=== PATIENT | male | born 1975 | race Caucasian/White ===

== ENCOUNTER 2016-06-13 15:49 | Observation (INO) | payer OTHER, MEDICARE ==
[~2016-06-13] VITALS: Ht 208.3 cm; Wt 118.9 kg
[~2016-06-13 15:49] MED LIST: AMBI5TAB PO; ASPI81TA82 PO; CLIN1CAP5 PO; FISH1360 PO; FLUO-1 PO; HYDR-3533 PO; INSU100V3 SQ/IV; LISI40TA PO; METF500 PO; MMW SWISH-SWAL; NIAC100T3 PO; PRED20 PO; VALI10TA PO; [UNRECOGNIZED DRUG - REMARK] PO
[2016-06-13 16:00] VITALS: BP 135/86; PULSE 114; RESP 20; TEMP 98; O2SAT 98
[2016-06-13] MEDS ORDERED: ONDANSETRON HCL 4 MG/2 ML VIAL IV PUSH ONE (16:00)
[2016-06-13] MEDS ORDERED: SODIUM CHLORIDE 0.9% FLUSH 5 ML FLUSH IVF PRN (16:00)
[2016-06-13] MEDS ORDERED: SODIUM CHLOR 0.9% 1000 ML INJ 1,000 ML IV ONE ×3 (16:00→19:30)
[2016-06-13] MEDS ORDERED: MORPHINE SULFATE 4 MG/ML INJ IV PUSH ONE ×2 (16:00→20:15)
[2016-06-13] MEDS ORDERED: METHY10 PO (16:08)
[2016-06-13] MEDS ORDERED: LISI40TA PO (16:08)
[2016-06-13] MEDS ORDERED: METF500T PO (16:08)
[2016-06-13] MEDS ORDERED: ASPI81CH CHEW (16:08)
[2016-06-13] MEDS ORDERED: NOVOLOGMXP SQ (16:08)
[2016-06-13] MEDS ORDERED: SERO100T PO (16:08)
[2016-06-13] MEDS ORDERED: SERO25TA PO (16:08)
[2016-06-13] MEDS ORDERED: OMEGCAP PO (16:08)
[2016-06-13] MEDS ORDERED: CARV6.25 PO (16:08)
[2016-06-13] MEDS ORDERED: PROZ20CA11 PO (16:08)
[2016-06-13] MEDS ORDERED: NIAC500T5 PO (16:08)
[2016-06-13] MEDS ORDERED: VIST25CA PO (16:08)
[2016-06-13] MEDS ORDERED: SERO50TA PO (16:08)
--- NOTE | 2016-06-13 16:12 | PD ---
HPI Chief Complaint: Chest Pain Time Seen by Provider: 15:53 Travel History International Travel<30 days: No Contact w/Intl Traveler<30days: No History of Present Illness HPI This is a 40-year-old male with a history of pancreatitis who presents to the emergency department with 2 days of chest pain that radiates to the back, constant, severe, associated with nausea and decreased appetite. He says this feels different from his pancreatitis in the past. The pain gets worse when he lays flat. He denies fevers or chills, diarrhea or constipation. He has had a stress test several years ago which was reassuring. He says he feels like something popped in his abdomen. PFSH Past Medical History Hx Anticoagulant Therapy: No Arthritis: Yes (OA, RA) Anxiety: Yes Cardiovascular Problems: Yes (HTN, CHF) High Cholesterol: Yes Congestive Heart Failure: Yes Diabetes: Yes Patient Takes Glucophage: Yes Diminished Hearing: No Hypertension: Yes Immune Disorder: Yes (RA) Respiratory: Yes (LUNG MASS) Pancreatitis: Yes Thyroid Disease: Yes (HYPER THYROID AND GOITER) Tetanus Vaccination: Unknown Influenza Vaccination: No Past Surgical History Appendectomy: Yes Cholecystectomy: Yes Other Surgery: Yes (SKIN GRAFTS) Social History Alcohol Use: Yes (OCC) Tobacco Use: No (quit 3 years ago) Substance Use: No Allergies-Medications (Allergen,Severity, Reaction): Coded Allergies: Klonopin (Verified Allergy, Severe, Psychosis, 12/24/15) Xanax (Verified Allergy, Severe, Psychosis, 12/24/15) Benzodiazepines (Verified Adverse Reaction, Unknown, 12/24/15) agitation Reported Meds & Prescriptions Reported Meds & Active Scripts Active Reported Niacin 500 Mg Tab 500 Mg PO DAILY [place]-3 Fish Oil/Vitamin (Fish Oil-Cholecalciferol) 1,000-1,000 Mg Cap 1 Cap PO DAILY Aspirin 81 Mg Chew 81 Mg CHEW DAILY Ritalin IR (Methylphenidate HCl) 10 Mg Tab 10 Mg PO DAILY Prozac (Fluoxetine HCl) 20 Mg Cap 30 Mg PO DAILY Vistaril (Hydroxyzine Pamoate) 25 Mg Cap 25 Mg PO TID Novolog Mix 70-30 Inj (Insulin Aspart Prota 70%/Aspart 30%) 1,000 Unit/10 Ml Vial 25 Units SQ BID Metformin (Metformin HCl) 500 Mg Tab 500 Mg PO BIDPC With meals Coreg (Carvedilol) 6.25 Mg Tab 6.25 Mg PO DAILY Lisinopril 40 Mg Tab 40 Mg PO DAILY Seroquel (Quetiapine Fumarate) 100 Mg Tab 150 Mg PO HS Seroquel (Quetiapine Fumarate) 50 Mg Tab 50 Mg PO 12PM Seroquel (Quetiapine Fumarate) 25 Mg Tab 25 Mg PO DAILY Review of Systems Except as stated in HPI: all other systems reviewed are Neg Physical Exam Narrative GENERAL: Uncomfortable appearing SKIN: Warm and dry. HEAD: Atraumatic. Normocephalic. EYES: Pupils equal and round. No injection or drainage. ENT: Moist mucous membranes NECK: Trachea midline. CARDIOVASCULAR: Tachycardic. No murmur appreciated. RESPIRATORY: Clear to auscultation. Breath sounds equal bilaterally. GASTROINTESTINAL: Abdomen soft, tender to palpation in the epigastrium and right upper quadrant with no rebound or guarding. MUSCULOSKELETAL: No obvious deformities. NEUROLOGICAL: Awake and alert. No obvious cranial nerve deficits. Moving all extremities. PSYCHIATRIC: Appropriate mood and affect; insight and judgment normal. Data Data Last Documented VS Vital Signs Date Time Temp Pulse Resp B/P Pulse Ox O2 Delivery O2 Flow Rate FiO2 06/13/16 19:23 98 Room Air 06/13/16 18:04 113 20 135/89 06/13/16 16:00 98.0 Orders Electrocardiogram (06/13/16 16:00) Complete Blood Count With Diff (06/13/16 16:00) Comprehensive Metabolic Panel (06/13/16 16:00) Magnesium (Mg) (06/13/16 16:00) Prothrombin Time / Inr (Pt) (06/13/16 16:00) Act Partial Throm Time (Ptt) (06/13/16 16:00) Troponin I (06/13/16 16:00) Lipase (06/13/16 16:00) Chest, Single Ap (06/13/16 16:00) Ecg Monitoring (06/13/16 16:00) Bilateral Bp Monitoring (06/13/16 16:00) Iv Access Insert/Monitor (06/13/16 16:00) Oximetry (06/13/16 16:00) Oxygen Administration (06/13/16 16:00) Sodium Chloride 0.9% Flush (Ns Flush) (06/13/16 16:00) Morphine Inj (Morphine Inj) (06/13/16 16:00) Ondansetron Inj (Zofran Inj) (06/13/16 16:00) Sodium Chlor 0.9% 1000 Ml Inj (Ns 1000 M (06/13/16 16:00) Lactic Acid (06/13/16 16:00) Ondansetron Inj (Zofran Inj) (06/13/16 18:30) Ct Abd/Pel W Iv Contrast(Rout) (06/13/16 ) Aspirin Chew (Aspirin Chew) (06/13/16 18:30) Iohexol 350 Inj (Omnipaque 350 Inj) (06/13/16 19:19) Insulin Human Regular Inj (Novolin R Inj (06/13/16 19:30) Ns (Bolus) Inj (06/13/16 19:30) Labs Laboratory Tests Test 06/13/16 06/13/16 16:00 16:56 White Blood Count 9.2 TH/MM3 Red Blood Count 4.86 MIL/MM3 Hemoglobin 14.8 GM/DL Hematocrit 41.9 % Mean Corpuscular Volume 86.2 FL Mean Corpuscular Hemoglobin 30.4 PG Mean Corpuscular Hemoglobin 35.3 % Concent Red Cell Distribution Width 11.3 % Platelet Count 304 TH/MM3 Mean Platelet Volume 9.7 FL Neutrophils (%) (Auto) 52.2 % Lymphocytes (%) (Auto) 42.3 % Monocytes (%) (Auto) 3.8 % Eosinophils (%) (Auto) 1.5 % Basophils (%) (Auto) 0.2 % Neutrophils # (Auto) 4.9 TH/MM3 Lymphocytes # (Auto) 3.9 TH/MM3 Monocytes # (Auto) 0.3 TH/MM3 Eosinophils # (Auto) 0.1 TH/MM3 Basophils # (Auto) 0.0 TH/MM3 CBC Comment AUTO DIFF Differential Comment AUTO DIFF CONFIRMED Hematology Comments Prothrombin Time SEC Prothromb Time International RATIO Ratio Activated Partial SEC Thromboplast Time Potassium Level 3.5 MEQ/L Chloride Level 86 MEQ/L Carbon Dioxide Level 23.2 MEQ/L Anion Gap 16 MEQ/L Blood Urea Nitrogen 13 MG/DL Creatinine 1.00 MG/DL Estimat Glomerular Filtration 83 ML/MIN Rate Random Glucose 520 MG/DL Magnesium Level 1.9 MG/DL Total Bilirubin 1.1 MG/DL Alkaline Phosphatase 90 U/L Troponin I LESS THAN 0.02 NG/ML Total Protein 8.2 GM/DL Albumin 3.1 GM/DL Lipase 112 U/L Lactic Acid Level 2.9 mmol/L MDM Medical Decision Making Medical Screen Exam Complete: Yes Emergency Medical Condition: Yes Interpretation(s) Afebrile, tachycardic, normotensive No leukocytosis Hyperglycemia, hyponatremia, lactic acid is 2.9 Troponin is normal EKG: Sinus tachycardia, Q waves in the inferior leads, no ST changes Chest x-ray: No acute process Differential Diagnosis Pancreatitis, gastritis, perforated ulcer, myocardial infarction Narrative Course This is a 40-year-old male who presents the emergency department with 2 days of increasing pain at the xiphoid process. On exam he is tender in the epigastrium. He is unwell-appearing, tachycardic and diaphoretic on exam. He was placed on a monitor and an IV was established. He was given 2 L of IV hydration as well as antiemetics and pain control. Labs demonstrate marked hypoglycemia, hyponatremia, as well as an elevated lactic acid. His troponin is negative and his EKG is nonischemic. Patient's blood work was evidently very difficult to run because he is so hyperlipidemic. Given this he certainly needs serial cardiac enzymes to rule out myocardial infarction however I'm concerned about a GI etiology of his symptoms given his tenderness on exam and his elevated lactate. CT scan is pending and will be followed up with Dr. Downey who will admit the patient to the hospital pending CT findings. Hazel Max MD Jun 13, 2016 16:12
[2016-06-13 16:39] LABS: POTASSIUM 3.5 MEQ/L (3.5-5.1)
[2016-06-13 16:43] LABS: BICARBONATE 23.2 MEQ/L (21.0-32.0); MAGNESIUM 1.9 MG/DL (1.5-2.5)
[2016-06-13 16:46] LABS: GLOMERULAR FILTRATION RATE 83 ML/MIN (>89)
--- NOTE | 2016-06-13 16:54 | RADHPO ---
EXAM DATE/TIME: 06/13/2016 16:35 [facility] COMPARISON: CT CERVICAL SPINE W/O CONTRAST, October 14, 2015, 22:02. INDICATIONS : Chest pain starting today MEDICAL HISTORY : None. SURGICAL HISTORY : None. ENCOUNTER: Initial ACUITY: 1 day PAIN SCORE: 10/10 LOCATION: Center of chest FINDINGS: A single view of the chest demonstrates the lungs to be symmetrically aerated without evidence of mas s, infiltrate or effusion. The cardiomediastinal contours are unremarkable. Osseous structures are intact. CONCLUSION: No acute disease. Radha Rosen MD on June 13, 2016 at 16:52 Board Certified Radiologist. This report was verified electronically.
[2016-06-13 17:04] VITALS: O2SAT 98
[2016-06-13 17:07] LABS: AUTOMATED NEUTROPHIL # 4.9 TH/MM3 (1.8-7.7); BASOPHIL % 0.2 % (0.0-2.0); EOSINOPHIL # 0.1 TH/MM3 (0-0.4); EOSINOPHIL % 1.5 % (0.0-4.0); HEMATOCRIT 41.9 % (39.0-51.0); LYMPH % 42.3 % (9.0-44.0); LYMPHOCYTE # 3.9 TH/MM3 (1.0-4.8); MEAN CELL VOLUME 86.2 FL (80.0-100.0); MEAN CORPUSCULAR HEMOGLOBIN 30.4 PG (27.0-34.0); MEAN CORPUSCULAR HGB CONC 35.3 % (32.0-36.0); MONO % 3.8 % (0.0-8.0); NEUT % 52.2 % (16.0-70.0); RED BLOOD COUNT 4.86 MIL/MM3 (4.50-5.90); RED CELL DISTRIBUTION WIDTH 11.3 % (11.6-17.2); WHITE BLOOD COUNT 9.2 TH/MM3 (4.0-11.0)
[2016-06-13 17:09] LABS: HEMO FLAGS AUTO DIFF; PLATELET COUNT 304 TH/MM3 (150-450)
[2016-06-13 17:23] LABS: SCAN/DIFF AUTO DIFF CONFIRMED
[2016-06-13 18:04] VITALS: BP 135/89; PULSE 113; RESP 20; O2SAT 98
[2016-06-13 18:04] LABS: TOTAL BILIRUBIN ADULT 1.1 MG/DL (0.2-1.0)
[2016-06-13 18:07] LABS: BLOOD UREA NITROGEN 13 MG/DL (7-18)
[2016-06-13] MEDS ORDERED: ASPIRIN 81 MG CHEW TAB CHEW ONE (18:30)
[2016-06-13] MEDS ORDERED: ONDANSETRON HCL 4 MG/2 ML VIAL IV ONE (18:30)
[2016-06-13 18:48] LABS: ALKALINE PHOSPHATASE 90 U/L (45-117)
[2016-06-13 19:08] LABS: APTT (PATIENT) ND SEC (24.3-30.1)
[2016-06-13 19:09] LABS: INTERNATIONAL NORMALIZED RATIO ND RATIO; PROTHROMBIN TIME - PATIENT ND SEC (9.8-11.6)
[2016-06-13] MEDS ORDERED: IOHEXOL 350 MG/ML 10 ML VIAL (for RAD DIAG) IV ONE (19:19)
[2016-06-13 19:23] VITALS: BP 145/92; PULSE 104; RESP 16; O2SAT 98
--- NOTE | 2016-06-13 19:27 | PD ---
Physical Exam Narrative Received sign out from previous team to follow up CTa/p and admit. 40yo M with CHF, DM, HLD, HTN presents to the ED with c/o subxyphoid chest pain for 2 days. Radiates to the lower back. Denies any sob, vomiting, weakness or numbness. Pt had similar chest pain 3 years ago and negative work up. Pt has had history of pancreatitis and has extremely high cholesterol. Labs reviewed, no leukocytosis. Glucose 520. Mild increased anion gap of 16. CO2 23.2. Lactic acid 2.9. Troponin negative. Lipase 112. CXR negative. K: 3.5. Pt given 7 units of regular insulin by previous team and 2 liters NS IVF. Will replace potassium with 40mEq KCl. I started giving a third liter but discontinued it secondary to history of CHF. Lungs are clear and no lower extremity edema. CXR negative. CTa/p showed hepatic steatosis and cholecystectomy. Pt has not had recent cardiac work up and has significant risk factor including HTN, DM, HLD and significant family history. Father had heart attack at age 35. Will admit pt for serial EKG and cardiac enzyme for chest pain. Discussed with Dr. Rasheed and accepted. Data Data Last Documented VS Vital Signs Date Time Temp Pulse Resp B/P Pulse Ox O2 Delivery O2 Flow Rate FiO2 06/13/16 19:23 98 Room Air 06/13/16 19:23 104 16 145/92 06/13/16 16:00 98.0 Orders Electrocardiogram (06/13/16 16:00) Complete Blood Count With Diff (06/13/16 16:00) Comprehensive Metabolic Panel (06/13/16 16:00) Magnesium (Mg) (06/13/16 16:00) Prothrombin Time / Inr (Pt) (06/13/16 16:00) Act Partial Throm Time (Ptt) (06/13/16 16:00) Troponin I (06/13/16 16:00) Lipase (06/13/16 16:00) Chest, Single Ap (06/13/16 16:00) Ecg Monitoring (06/13/16 16:00) Bilateral Bp Monitoring (06/13/16 16:00) Iv Access Insert/Monitor (06/13/16 16:00) Oximetry (06/13/16 16:00) Oxygen Administration (06/13/16 16:00) Sodium Chloride 0.9% Flush (Ns Flush) (06/13/16 16:00) Morphine Inj (Morphine Inj) (06/13/16 16:00) Ondansetron Inj (Zofran Inj) (06/13/16 16:00) Sodium Chlor 0.9% 1000 Ml Inj (Ns 1000 M (06/13/16 16:00) Lactic Acid (06/13/16 16:00) Ondansetron Inj (Zofran Inj) (06/13/16 18:30) Ct Abd/Pel W Iv Contrast(Rout) (06/13/16 ) Aspirin Chew (Aspirin Chew) (06/13/16 18:30) Iohexol 350 Inj (Omnipaque 350 Inj) (06/13/16 19:19) Insulin Human Regular Inj (Novolin R Inj (06/13/16 19:30) Sodium Chlor 0.9% 1000 Ml Inj (Ns 1000 M (06/13/16 19:30) Potassium Chloride (Kcl) (06/13/16 19:30) Sodium Chlor 0.9% 1000 Ml Inj (Ns 1000 M (06/13/16 19:30) Electrocardiogram (06/13/16 18:27) Morphine Inj (Morphine Inj) (06/13/16 20:15) Place In Observation (06/13/16 ) Vital Signs (Adult) Q4H (06/13/16 20:47) Activity Oob With Assistance (06/13/16 20:47) ^ Professor Of Biblical Studies / Telemetry .CONTINUOUS (06/13/16 20:47) Diet Heart Healthy (06/14/16 Breakfast) Sodium Chloride 0.9% Flush (Ns Flush) (06/13/16 21:00) Sodium Chloride 0.9% Flush (Ns Flush) (06/13/16 21:00) Creatine Kinase (Cpk) (06/13/16 22:00) Creatine Kinase (Cpk) (06/14/16 04:00) Troponin I (06/13/16 22:00) Troponin I (06/14/16 04:00) Electrocardiogram (06/13/16 22:00) Electrocardiogram (06/14/16 04:00) Pt Request For Service (06/13/16 20:47) Naloxone Inj (Narcan Inj) (06/13/16 21:00) Bedside Glucose CHELSY.AC&HS (06/13/16 20:49) ^ Blood Glucose Goal (Criteria (06/13/16 20:49) ^ Hypoglycemia 51 - 69 Mg/Dl (06/13/16 20:49) ^ Hypoglycemia 50 Mg/Dl Or < (06/13/16 20:49) ^ Notify Dr: Other (06/13/16 20:49) Dextrose 50% In Alfredo (Vial) Inj (D50w (Vi (06/13/16 21:00) Glucagon Inj (Glucagon Inj) (06/13/16 21:00) Insulin Aspart Supplemtl Scale (Novolog (06/13/16 21:00) Aspirin Chew (Aspirin Chew) (06/14/16 09:00) Carvedilol (Coreg) (06/14/16 09:00) Insulin Aspar Prot 70/30 Inj (Novolog Mi (06/13/16 21:00) Lisinopril (Prinivil) (06/14/16 09:00) Admit Order (Ed Use Only) (06/13/16 20:54) Labs Laboratory Tests Test 06/13/16 06/13/16 16:00 16:56 White Blood Count 9.2 TH/MM3 Red Blood Count 4.86 MIL/MM3 Hemoglobin 14.8 GM/DL Hematocrit 41.9 % Mean Corpuscular Volume 86.2 FL Mean Corpuscular Hemoglobin 30.4 PG Mean Corpuscular Hemoglobin 35.3 % Concent Red Cell Distribution Width 11.3 % Platelet Count 304 TH/MM3 Mean Platelet Volume 9.7 FL Neutrophils (%) (Auto) 52.2 % Lymphocytes (%) (Auto) 42.3 % Monocytes (%) (Auto) 3.8 % Eosinophils (%) (Auto) 1.5 % Basophils (%) (Auto) 0.2 % Neutrophils # (Auto) 4.9 TH/MM3 Lymphocytes # (Auto) 3.9 TH/MM3 Monocytes # (Auto) 0.3 TH/MM3 Eosinophils # (Auto) 0.1 TH/MM3 Basophils # (Auto) 0.0 TH/MM3 CBC Comment AUTO DIFF Differential Comment AUTO DIFF CONFIRMED Hematology Comments Prothrombin Time SEC Prothromb Time International RATIO Ratio Activated Partial SEC Thromboplast Time Sodium Level 134 MEQ/L Potassium Level 3.5 MEQ/L Chloride Level 96 MEQ/L Carbon Dioxide Level 23.2 MEQ/L Anion Gap 15 MEQ/L Blood Urea Nitrogen 13 MG/DL Creatinine 1.00 MG/DL Estimat Glomerular Filtration 83 ML/MIN Rate Random Glucose 520 MG/DL Calcium Level 9.2 MG/DL Magnesium Level 1.9 MG/DL Total Bilirubin 1.1 MG/DL Aspartate Amino Transf 36 U/L (AST/SGOT) Alanine Aminotransferase 44 U/L (ALT/SGPT) Alkaline Phosphatase 90 U/L Troponin I LESS THAN 0.02 NG/ML Total Protein 8.2 GM/DL Albumin 3.8 GM/DL Lipase 112 U/L Lactic Acid Level 2.9 mmol/L MDM Supervised Visit with FLOYD: Gabriella Alicia DO Jun 13, 2016 19:27
[2016-06-13] MEDS ORDERED: POTASSIUM CHLORIDE 20 MEQ CONTROLLED RELEASE TAB PO ONE (19:30)
[2016-06-13] MEDS ORDERED: INSULIN HUMAN REGULAR 1,000 UNITS/10 ML VIAL IV PUSH ONE (19:30)
--- NOTE | 2016-06-13 19:33 | RADHPO ---
EXAM DATE/TIME: 06/13/2016 19:03 [facility] COMPARISON: No previous studies available for comparison. INDICATIONS : Chest and epigastric pain with nausea. IV CONTRAST: 95 cc Omnipaque 350 (iohexol) IV ORAL CONTRAST: No oral contrast ingested. RADIATION DOSE: 21.19 CTDIvol (mGy) MEDICAL HISTORY : Hyperparathyroidism. Congestive heart failure. Hypertension. SURGICAL HISTORY : Cholecystectomy. Appendectomy. ENCOUNTER: Initial ACUITY: 1 day PAIN SCALE: 5/10 LOCATION: Bilateral upper quadrant TECHNIQUE: Volumetric scanning of the abdomen and pelvis was performed. Using automated exposure control and ad justment of the mA and/or kV according to patient size, radiation dose was kept as low as reasonably achievable to obtain optimal diagnostic quality images. FINDINGS: LOWER LUNGS: The visualized lower lungs are clear. LIVER: Decreased density without lesion. There is no dilation of the biliary tree. Cholecystectomy. SPLEEN: Normal size without lesion. PANCREAS: Within normal limits. KIDNEYS: Normal in size and shape. There is no mass, stone or hydronephrosis. ADRENAL GLANDS: Within normal limits. VASCULAR: There is no aortic aneurysm. BOWEL/MESENTERY: The stomach, small bowel, and colon demonstrate no acute abnormality. There is no free intraperitone al air or fluid. ABDOMINAL WALL: Within normal limits. RETROPERITONEUM: There is no lymphadenopathy. BLADDER: No wall thickening or mass. REPRODUCTIVE: Within normal limits. INGUINAL: There is no lymphadenopathy or hernia. MUSCULOSKELETAL: Within normal limits for patient age. CONCLUSION: 1. Hepatic steatosis. 2. Cholecystectomy. Narciso Queen MD on June 13, 2016 at 19:20 Board Certified Radiologist. This report was verified electronically.
[2016-06-13 19:40] LABS: ANION GAP 15 MEQ/L (5-15)
[2016-06-13 19:41] LABS: ALT (GPT) 44 U/L (12-78); AST (GOT) 36 U/L (15-37)
[2016-06-13 19:46] LABS: SODIUM (NA) 134 MEQ/L (136-145)
[2016-06-13 19:47] LABS: CHLORIDE 96 MEQ/L (98-107)
[2016-06-13] MEDS ORDERED: NALOXONE HCL 0.4 MG/ML AMP IV PRN (21:00)
[2016-06-13] MEDS ORDERED: SODIUM CHLORIDE 0.9% FLUSH 5 ML FLUSH FLUSH PRN (21:00)
[2016-06-13] MEDS: SODIUM CHLORIDE 0.9% FLUSH 5 ML FLUSH FLUSH SCH (21:00)
[2016-06-13] MEDS ORDERED: DEXTROSE 50% IN WATER 50 ML VIAL(D50) IV PUSH PRN (21:00)
[2016-06-13] MEDS ORDERED: GLUCAGON 1 MG/ML VIAL OTHER PRN (21:00)
[2016-06-13] MEDS: INSULIN ASPAR PROT 70/30 1,000 UNITS/10 ML VIAL SQ SCH (22:17)
[2016-06-13] MEDS: INSULIN ASPART SUPPLEMENTAL SCALE SQ SCH (22:18)
[2016-06-13 22:28] VITALS: BP 142/76; PULSE 74; RESP 16
[2016-06-13] MEDS ORDERED: ONDANSETRON HCL 4 MG/2 ML VIAL IV PUSH PRN (23:30)
[2016-06-13 23:31] LABS: CREATINE KINASE 46 U/L (39-308)
[2016-06-13] MEDS: ACETAMINOPHEN/HYDROcodone 325 MG/5 MG TAB PO PRN (23:33)
[2016-06-14 00:55] VITALS: BP 147/82; PULSE 88; RESP 16; O2SAT 99
[2016-06-14] MEDS: ACETAMINOPHEN/HYDROcodone 325 MG/5 MG TAB PO PRN ×2 (04:10→10:27)
[2016-06-14 04:16] VITALS: BP 142/77; PULSE 87; RESP 16; O2SAT 99
[2016-06-14 05:05] LABS: CREATINE KINASE 59 U/L (39-308)
[2016-06-14 06:29] VITALS: BP 142/81; PULSE 78; RESP 16; O2SAT 99
[2016-06-14] MEDS: INSULIN ASPART SUPPLEMENTAL SCALE SQ SCH ×2 (06:37→11:21)
[2016-06-14 07:08] LABS: POTASSIUM 3.7 MEQ/L (3.5-5.1)
[2016-06-14 07:10] VITALS: BP 148/92; PULSE 91; RESP 17; TEMP 97.6; O2SAT 97
[2016-06-14 07:11] LABS: BICARBONATE 23.6 MEQ/L (21.0-32.0)
[2016-06-14 09:00] VITALS: BP 157/94; PULSE 102; RESP 20; TEMP 96.8; O2SAT 97
[2016-06-14] MEDS ORDERED: LISINOPRIL 20 MG TAB PO SCH (09:00)
[2016-06-14] MEDS ORDERED: CARVEDILOL 6.25 MG TAB PO SCH (09:00)
[2016-06-14] MEDS ORDERED: ASPIRIN 81 MG CHEW TAB CHEW SCH (09:00)
[2016-06-14] MEDS: SODIUM CHLORIDE 0.9% FLUSH 5 ML FLUSH FLUSH SCH (09:21)
[2016-06-14] MEDS: INSULIN ASPAR PROT 70/30 1,000 UNITS/10 ML VIAL SQ SCH (09:41)
[2016-06-14 12:00] VITALS: BP 138/92; PULSE 95; RESP 18; TEMP 96.9; O2SAT 98
[2016-06-14] MEDS ORDERED: QUEtiapine FUMARATE 25 MG TAB PO SCH (12:15)
[2016-06-14] MEDS ORDERED: PILL SPLITTER OTHER PRN (12:30)
[2016-06-14] MEDS ORDERED: FLUoxetine HCL 10 MG CAP PO SCH (12:30)
--- NOTE | 2016-06-14 12:31 | EKG ---
Date Performed: 06/13/2016 Time Performed: 15:47:26 PTAGE: 40 years EKG: Sinus tachycardia QRS changes V3/V4 may be due to LVH but cannot rule out anterior infarct Since previous tracing, no significant change noted Abnormal ECG PREVIOUS TRACING : 10/14/2015 23.07 DOCTOR: Ryan Deal Interpretating Date/Time 06/14/2016 12:30:13
--- NOTE | 2016-06-14 12:32 | EKG ---
Date Performed: 06/13/2016 Time Performed: 18:27:08 PTAGE: 40 years EKG: Sinus rhythm Old anteroseptal infarct Since previous tracing, no significant change noted Abnormal ECG PREVIOUS TRACING : 06/13/2016 15.47 DOCTOR: Ryan Deal Interpretating Date/Time 06/14/2016 12:30:43
--- NOTE | 2016-06-14 12:32 | EKG ---
Date Performed: 06/13/2016 Time Performed: 22:00:40 PTAGE: 40 years EKG: Sinus tachycardia Poor R wave progression - cannot exclude anteroseptal infarct Probably no major changes since the prior tracing. Borderline ECG PREVIOUS TRACING : 06/13/2016 18.27 DOCTOR: Ryan Deal Interpretating Date/Time 06/14/2016 12:31:15
[2016-06-14] MEDS ORDERED: CARA1TAB6 PO (12:35)
[2016-06-14] MEDS ORDERED: PROT40TA PO (12:35)
--- NOTE | 2016-06-14 12:36 | HHI.DCPOC ---
Discharge Care Plan Diagnosis: (1) Chest pain, atypical Goals to Promote Your Health * To prevent worsening of your condition and complications * To maintain your health at the optimal level Directions to Meet Your Goals Take your medications as prescribed Follow your dietary instruction Follow activity as directed Keep your appointments as scheduled Take your immunizations and boosters as scheduled If your symptoms worsen call your PCP, if no PCP go to Urgent Care Center or Emergency Room Smoking is Dangerous to Your Health. Avoid second hand smoke Call the 24-hour hour crisis hotline for domestic abuse at Dania Thompson MD Jun 14, 2016 12:36
--- NOTE | 2016-06-14 12:41 | HHI.HP ---
cc: Mikey Salcido MD [facility] Service [facility] Primary Care Physician Mikey Salcido MD Admission Diagnosis Chest pain, uncontrolled DM Diagnoses: Chief Complaint: Epigastric pain Travel History International Travel<30 Days: No Contact w/Intl Traveler <30 Da: No Traveled to Known Affected Are: No History of Present Illness This patient is a 40 year-old gentleman with a history of diabetes and hypertension and heart failure who did come to the hospital complaining of epigastric tenderness for at least 2 days. He admits chronic dyspepsia and increased belching and epigastric discomfort after heavy meals. He does take an [id number] H2 harshad for these symptoms. He also tried some Motrin for the discomfort. The pain and discomfort became so great that he did come to the emergency room. He had cardiac enzymes and EKG completed in the emergency room as well as a CT abdomen and pelvis. There is no evidence of acute cardiopulmonary or intra-abdominal findings on x-ray, CT abdomen pelvis on my review. Patient has nonischemic findings on his EKG on my review. Patient again has reproducible finding on his exam. Today the patient feels much better. I did discuss options for gastroenterology follow-up which she has never had for this complaint. He and his would prefer outpatient follow-up. This point think this is reasonable given his current stable findings. Review of Systems Constitutional: DENIES: Diaphoretic episodes, Fatigue, Fever, Weight gain, Weight loss, Chills, Dizziness, Change in appetite, Night Sweats Endocrine: DENIES: Heat/cold intolerance, Polydipsia, Polyuria, Polyphagia Eyes: DENIES: Blurred vision, Diplopia, Eye inflammation, Eye pain, Vision loss , Photosensitivity, Double Vision Ears, nose, mouth, throat: DENIES: Tinnitus, Hearing loss, Vertigo, Nasal discharge, Oral lesions, Throat pain, Hoarseness, Ear Pain, Running Nose, Epistaxis, Sinus Pain, Toothache, Odynophagia Respiratory: DENIES: Apneas, Cough, Snoring, Wheezing, Hemoptysis, Sputum production, Shortness of breath Cardiovascular: DENIES: Chest pain, Palpitations, Syncope, Dyspnea on Exertion , PND, Lower Extremity Edema, Orthopnea, Claudication Gastrointestinal: COMPLAINS OF: Abdominal pain, DENIES: Black stools, Bloody stools, Constipation, Diarrhea, Nausea, Vomiting, Difficulty Swallowing, Anorexia Genitourinary: DENIES: Sexual dysfunction, Urinary frequency, Urinary incontinence, Urgency, Hematuria, Dysuria, Nocturia, Penile Discharge, Testicular Pain, Testicular Swelling Musculoskeletal: DENIES: Joint pain, Muscle aches, Stiffness, Joint Swelling, Back pain, Neck pain Integumentary: DENIES: Abnormal pigmentation, Nail changes, Pruritus, Rash Hematologic/lymphatic: DENIES: Bruising, Lymphadenopathy Immunologic/allergic: DENIES: Eczema, Urticaria Neurologic: DENIES: Abnormal gait, Headache, Localized weakness, Paresthesias, Seizures, Speech Problems, Tremor, Poor Balance Psychiatric: DENIES: Anxiety, Confusion, Mood changes, Depression, Hallucinations, Agitation, Suicidal Ideation, Homicidal Ideation, Delusions Past Family Social History Past Medical History Hypertension Heart failure PTSD ADD Depression/anxiety Diabetes mellitus type 2 Hyperlipidemia Past Surgical History Skin grafts Appendectomy Cholecystectomy Reported Medications Reviewed and the medical record, also takes [id number] H2 harshad Allergies: Coded Allergies: Klonopin (Verified Allergy, Severe, Psychosis, 12/24/15) Xanax (Verified Allergy, Severe, Psychosis, 12/24/15) HMG-CoA Reductase Inhibitors (Verified Allergy, Intermediate, 06/13/16) Benzodiazepines (Verified Adverse Reaction, Unknown, 12/24/15) agitation Active Ordered Medications Reviewed in the medical record Family History "Everybody has hypertension diabetes" Social History , no tobacco or alcohol dependency Physical Exam Vital Signs Vital Signs Date Time Temp Pulse Resp B/P Pulse Ox O2 Delivery O2 Flow Rate FiO2 06/14/16 09:00 96.8 102 20 157/94 97 06/14/16 07:10 17 97 Room Air 06/14/16 07:10 97.6 91 17 148/92 97 Room Air 06/14/16 07:10 97 Room Air 06/14/16 07:10 91 17 97 Room Air 06/14/16 06:29 78 16 142/81 99 Room Air 06/14/16 04:16 87 16 142/77 99 Room Air 06/14/16 00:55 88 16 147/82 99 Room Air 06/13/16 22:28 74 16 142/76 06/13/16 19:23 98 Room Air 06/13/16 19:23 104 16 145/92 98 Room Air 06/13/16 18:04 113 20 135/89 98 Room Air 06/13/16 17:04 99 Room Air 06/13/16 17:04 98 Room Air 06/13/16 16:00 98.0 114 20 135/86 98 06/13/16 16:00 20 99 Room Air Physical Exam GENERAL: This is a well-nourished, well-developed patient, in no apparent distress. SKIN: No rashes, ecchymoses or lesions. Cool and dry. HEAD: Atraumatic. Normocephalic. No temporal or scalp tenderness. EYES: Pupils equal round and reactive. Extraocular motions intact. No scleral icterus. No injection or drainage. ENT: Nose without bleeding, purulent drainage or septal hematoma. Throat without erythema, tonsillar hypertrophy or exudate. Uvula midline. Airway patent. NECK: Trachea midline. No JVD or lymphadenopathy. Supple, nontender, no meningeal signs. CARDIOVASCULAR: Regular rate and rhythm without murmurs, gallops, or rubs. RESPIRATORY: Clear to auscultation. Breath sounds equal bilaterally. No wheezes , rales, or rhonchi. GASTROINTESTINAL: Reproducible epigastric tenderness, Abdomen soft, non-tender, nondistended. No hepato-splenomegaly, or palpable masses. No guarding. MUSCULOSKELETAL: Extremities without clubbing, cyanosis, or edema. No joint tenderness, effusion, or edema noted. No calf tenderness. Negative Homans sign bilaterally. NEUROLOGICAL: Awake and alert. Cranial nerves II through XII intact. Motor and sensory grossly within normal limits. Five out of 5 muscle strength in all muscle groups. Normal speech. Laboratory Laboratory Tests Test 06/13/16 06/13/16 06/13/16 06/14/16 16:00 16:56 22:10 04:15 White Blood Count 9.2 Red Blood Count 4.86 Hemoglobin 14.8 Hematocrit 41.9 Mean Corpuscular Volume 86.2 Mean Corpuscular Hemoglobin 30.4 Mean Corpuscular Hemoglobin 35.3 Concent Red Cell Distribution Width 11.3 Platelet Count 304 Mean Platelet Volume 9.7 Neutrophils (%) (Auto) 52.2 Lymphocytes (%) (Auto) 42.3 Monocytes (%) (Auto) 3.8 Eosinophils (%) (Auto) 1.5 Basophils (%) (Auto) 0.2 Neutrophils # (Auto) 4.9 Lymphocytes # (Auto) 3.9 Monocytes # (Auto) 0.3 Eosinophils # (Auto) 0.1 Basophils # (Auto) 0.0 CBC Comment AUTO DIFF Differential Comment AUTO DIFF CONFIRMED Hematology Comments Prothrombin Time Prothromb Time International Ratio Activated Partial Thromboplast Time Sodium Level 134 134 Potassium Level 3.5 3.7 Chloride Level 96 98 Carbon Dioxide Level 23.2 23.6 Anion Gap 15 12 Blood Urea Nitrogen 13 14 Creatinine 1.00 0.92 Estimat Glomerular Filtration 83 91 Rate Random Glucose 520 270 Calcium Level 9.2 7.8 Magnesium Level 1.9 Total Bilirubin 1.1 Aspartate Amino Transf 36 (AST/SGOT) Alanine Aminotransferase 44 (ALT/SGPT) Alkaline Phosphatase 90 Troponin I LESS THAN 0.02 LESS THAN 0.02 LESS THAN 0.02 Total Protein 8.2 Albumin 3.8 Lipase 112 Lactic Acid Level 2.9 Total Creatine Kinase 46 59 Result Diagram: 06/13/16 1600 06/14/16 0415 Imaging Last Impressions Chest X-Ray 06/13/16 1600 Signed Impressions: Service Date/Time: Monday, June 13, 2016 16:35 - CONCLUSION: No acute disease. Radha Rosen MD Abdomen/Pelvis CT 06/13/16 0000 Signed Impressions: Service Date/Time: Monday, June 13, 2016 19:03 - CONCLUSION: 1. Hepatic steatosis. 2. Cholecystectomy. Narciso Queen MD Assessment and Plan Problem List: (1) Chest pain, atypical ICD Code: R07.89 Status: Acute Plan: Likely gastrointestinal in etiology Continue proton pump inhibitor twice a day, add Carafate Outpatient GI eval. Discussed with patient and spouse and they're agreeable (2) HTN (hypertension) ICD Code: I10 Status: Acute Plan: Continue patient's home medications Coreg, lisinopril these are also being used to treat his heart failure (3) DM2 (diabetes mellitus, type 2) ICD Code: E11.9 Status: Acute Plan: Continue home insulin and metformin, hyperglycemia resolved Assessment and Plan Discharge home Diet diabetic, heart healthy Activity unrestricted Code Status Full code Discussed Condition With Patient, spouse Dania Thompson MD Jun 14, 2016 12:41
[2016-06-14] MEDS ORDERED: hydrOXYzine PAMOATE 25 MG CAP PO SCH (13:00)
[2016-06-14] MEDS ORDERED: QUEtiapine FUMARATE 100 MG TAB PO SCH (21:00)
--- NOTE | 2016-06-14 21:24 | EKG ---
Date Performed: 06/14/2016 Time Performed: 03:35:58 PTAGE: 40 years EKG: Normal Sinus rhythm Poor R-wave progression Cannot exclude anteroseptal infarct. No significant change from prior maycol sylvester Abnormal ECG PREVIOUS TRACING : 06/13/2016 22.00 DOCTOR: Ryan Deal Interpretating Date/Time 06/14/2016 21:23:00
== END 2016-06-14 13:45 | disposition home or self-care (01) ==
LOC: PHED 15:49 → PHEDA 20:54 → PHEDH 06-14 00:54 → PH3A 06-14 08:31
PROVIDERS: ADMIT Hospitalist; ATTEND Hospitalist
DX: R07.89 Other chest pain (principal); E11.65 Type 2 diabetes mellitus with hyperglycemia; E78.5 Hyperlipidemia, unspecified; I10 Essential (primary) hypertension; E87.1 Hypo-osmolality and hyponatremia; E78.00 Pure hypercholesterolemia, unspecified; K76.0 Fatty (change of) liver, not elsewhere classified; F43.10 Post-traumatic stress disorder, unspecified; M19.90 Unspecified osteoarthritis, unspecified site; Z79.4 Long term (current) use of insulin; Z82.49 Family history of ischemic heart disease and other diseases of the circulatory system
CPT/HCPCS: 71010; 74177; 80048; 80053; 82550; 83605; 83690; 83735; 84484; 85025; 85610; 85730; 93005; 96361; 96374; 96375; 96376; 97161; 99285; G0378; G8987; G8988; J1815; J2270; J2405; J7030; Q0177; Q9967

== ENCOUNTER → 2016-07-30 | Outpatient (CLI) | payer OTHER, MEDICARE ==
[~2016-07-30] MED LIST changes: -AMBI5TAB PO; +ASPI81CH CHEW; -ASPI81TA82 PO; +CARA1TAB6 PO; +CARV6.25 PO; -CLIN1CAP5 PO; -FISH1360 PO; -FLUO-1 PO; -HYDR-3533 PO; -INSU100V3 SQ/IV; -METF500 PO; +METF500T PO; +METHY10 PO; -MMW SWISH-SWAL; -NIAC100T3 PO; +NIAC500T5 PO; +NOVOLOGMXP SQ; +OMEGCAP PO; -PRED20 PO; +PROT40TA PO; +PROZ20CA11 PO; +SERO100T PO; +SERO25TA PO; +SERO50TA PO; -VALI10TA PO; +VIST25CA PO; -[UNRECOGNIZED DRUG - REMARK] PO
[2016-07-30 13:05] LABS: AUTOMATED NEUTROPHIL # 4.4 TH/MM3 (1.8-7.7); BASOPHIL % 0.6 % (0.0-2.0); EOSINOPHIL # 0.1 TH/MM3 (0-0.4); EOSINOPHIL % 1.8 % (0.0-4.0); HEMATOCRIT 40.8 % (39.0-51.0); HEMO FLAGS DIFF FINAL; LYMPH % 37.6 % (9.0-44.0); LYMPHOCYTE # 3.1 TH/MM3 (1.0-4.8); MEAN CELL VOLUME 82.5 FL (80.0-100.0); MEAN CORPUSCULAR HEMOGLOBIN 28.7 PG (27.0-34.0); MEAN CORPUSCULAR HGB CONC 34.8 % (32.0-36.0); MONO % 5.6 % (0.0-8.0); NEUT % 54.4 % (16.0-70.0); PLATELET COUNT 242 TH/MM3 (150-450); RED BLOOD COUNT 4.95 MIL/MM3 (4.50-5.90); RED CELL DISTRIBUTION WIDTH 12.7 % (11.6-17.2); WHITE BLOOD COUNT 8.1 TH/MM3 (4.0-11.0)
[2016-07-30 13:48] LABS: ANION GAP 11 MEQ/L (5-15); AST (GOT) 15 U/L (15-37); BICARBONATE 24.6 MEQ/L (21.0-32.0); BLOOD UREA NITROGEN 15 MG/DL (7-18); CHLORIDE 100 MEQ/L (98-107); GLOMERULAR FILTRATION RATE 86 ML/MIN (>89); GLUCOSE,FASTING 240 MG/DL (74-99); POTASSIUM 3.9 MEQ/L (3.5-5.1); SODIUM (NA) 136 MEQ/L (136-145)
[2016-07-30 13:58] LABS: ALKALINE PHOSPHATASE 67 U/L (45-117); ALT (GPT) 33 U/L (12-78); FREE T4 1.08 NG/DL (0.76-1.46); HDL CHOLESTEROL 37.9 MG/DL (40.0-60.0); TOTAL BILIRUBIN ADULT 1.1 MG/DL (0.2-1.0)
== END ==
LOC: PLAB 09:47
PROVIDERS: ATTEND Family Medicine
DX: F43.10 Post-traumatic stress disorder, unspecified (principal); I10 Essential (primary) hypertension; E11.65 Type 2 diabetes mellitus with hyperglycemia; I50.9 Heart failure, unspecified; F90.0 Attention-deficit hyperactivity disorder, predominantly inattentive type; E04.9 Nontoxic goiter, unspecified; K86.1 Other chronic pancreatitis; M06.9 Rheumatoid arthritis, unspecified; G47.00 Insomnia, unspecified; F41.1 Generalized anxiety disorder; K21.0 Gastro-esophageal reflux disease with esophagitis; G89.29 Other chronic pain; M54.5 Low back pain; Z68.37 Body mass index [BMI] 37.0-37.9, adult
CPT/HCPCS: 80053; 80061; 84439; 84443; 85025

== ENCOUNTER 2017-03-17 15:16 | Emergency (ER) | payer OTHER, MEDICARE ==
[~2017-03-17] VITALS: Ht 208.3 cm; Wt 117.0 kg
[2017-03-17 15:30] VITALS: BP 134/92; PULSE 124; RESP 16; TEMP 98.6; O2SAT 98
[2017-03-17 16:30] VITALS: PULSE 112
[2017-03-17] MEDS ORDERED: ONDANSETRON ODT 4 MG TAB PO ONE (16:45)
[2017-03-17] MEDS ORDERED: NOVOLOGMXP SQ (16:47)
[2017-03-17] MEDS ORDERED: NEUR300C PO (16:48)
[2017-03-17] MEDS ORDERED: FENO145T2 PO (16:50)
[2017-03-17 17:54] VITALS: BP 140/86; PULSE 107; RESP 16; O2SAT 97
--- NOTE | 2017-03-17 18:09 | RADRPT ---
EXAM DATE/TIME: 03/17/2017 17:39 [place] COMPARISON: No previous studies available for comparison. INDICATIONS : Hit left frontal area yesterday. RADIATION DOSE: 57.87 CTDIvol (mGy) MEDICAL HISTORY : Congestive heart failure. SURGICAL HISTORY : None. ENCOUNTER: Initial ACUITY: 2 days PAIN SCALE: 3/10 LOCATION: Left frontal TECHNIQUE: Multiple contiguous axial images were obtained of the head. Using automated exposure control and adj ustment of the mA and/or kV according to patient size, radiation dose was kept as low as reasonably a chievable to obtain optimal diagnostic quality images. DICOM format image data is available electro nically for review and comparison. FINDINGS: CEREBRUM: The ventricles are normal for age. No evidence of midline shift, mass lesion, hemorrhage or acute in farction. No extra-axial fluid collections are seen. POSTERIOR FOSSA: The cerebellum and brainstem are intact. The 4th ventricle is midline. The cerebellopontine angle i s unremarkable. EXTRACRANIAL: The visualized portion of the orbits is intact. SKULL: The calvaria is intact. No evidence of skull fracture. CONCLUSION: No acute disease. Phil Bright MD on March 17, 2017 at 18:07 Board Certified Radiologist. This report was verified electronically.
--- NOTE | 2017-03-17 18:18 | PD ---
HPI Chief Complaint: Head Injury Time Seen by Provider: 16:38 Travel History International Travel<30 days: No Contact w/Intl Traveler<30days: No Traveled to known affect area: No History of Present Illness HPI So 41-year-old man who presents emergency department complaining of head injury. He had a friend reportedly trying to push a heavy lawnmower above ramp when the lawnmower locked up throwing them both forward. He hit his front of his head and his orthodoxy on the other vehicle. He was dazed, possibly briefly knocked out but for not more than a few seconds. Since then he is felt severe tenderness on the side of his head as well as headache. He's had nausea but no vomiting. Symptoms are moderate in severity, persistent and worsening. History Past Medical History Narrative Medical Hypertension Diabetes CHF Hyperlipidemia Kidney stones Tetanus Vaccination: < 5 Years Influenza Vaccination: No Social History Alcohol Use: No (denies) Tobacco Use: No (quit4 years ago smoked 2 ppd, states e-vaps) Allergies-Medications (Allergen,Severity, Reaction): Coded Allergies: alprazolam (Unverified Allergy, Severe, Psychosis, 03/17/17) agitation clonazepam (Unverified Allergy, Severe, Psychosis, 03/17/17) agitation amlodipine (Unverified Allergy, Intermediate, 03/17/17) atorvastatin (Unverified Allergy, Intermediate, 03/17/17) pravastatin (Unverified Allergy, Intermediate, 03/17/17) simvastatin (Unverified Allergy, Intermediate, 03/17/17) clorazepate dipotassium (Unverified Adverse Reaction, Unknown, 03/17/17) agitation diazepam (Unverified Adverse Reaction, Unknown, 03/17/17) agitation lorazepam (Unverified Adverse Reaction, Unknown, 03/17/17) agitation midazolam (Unverified Adverse Reaction, Unknown, 03/17/17) agitation oxazepam (Unverified Adverse Reaction, Unknown, 03/17/17) agitation temazepam (Unverified Adverse Reaction, Unknown, 03/17/17) agitation Reported Meds & Prescriptions Reported Meds & Active Scripts Active Reported Fenofibrate 145 Mg Tab 145 Mg PO HS Neurontin (Gabapentin) 300 Mg Cap 300 Mg PO TID Novolog Mix 70-30 Inj (Insulin Aspart Prota 70%/Aspart 30%) 1,000 Unit/10 Ml Vial 30 Units SQ HS Niacin 500 Mg Tab 500 Mg PO BID [place]-3 Fish Oil/Vitamin (Fish Oil-Cholecalciferol) 1,000-1,000 Mg Cap 1 Cap PO TID Aspirin 81 Mg Chew 81 Mg CHEW DAILY Ritalin IR (Methylphenidate HCl) 10 Mg Tab 10 Mg PO DAILY Prozac (Fluoxetine HCl) 20 Mg Cap 30 Mg PO DAILY Vistaril (Hydroxyzine Pamoate) 25 Mg Cap 25 Mg PO TID Novolog Mix 70-30 Inj (Insulin Aspart Prota 70%/Aspart 30%) 1,000 Unit/10 Ml Vial 35 Units SQ DAILY Metformin (Metformin HCl) 500 Mg Tab 500 Mg PO BIDPC With meals Coreg (Carvedilol) 6.25 Mg Tab 6.25 Mg PO DAILY Lisinopril 40 Mg Tab 40 Mg PO DAILY Seroquel (Quetiapine Fumarate) 100 Mg Tab 150 Mg PO BID Seroquel (Quetiapine Fumarate) 50 Mg Tab 50 Mg PO DAILY Review of Systems Except as stated in HPI: all other systems reviewed are Neg Physical Exam Narrative GENERAL: 41-year-old male, generally well-appearing, no acute distress. SKIN: Focused skin assessment warm/dry. HEAD: Atraumatic. Normocephalic. EYES: Pupils equal and round. No scleral icterus. No injection or drainage. ENT: No nasal bleeding or discharge. Mucous membranes pink and moist. Bruising over the left brow bruising over the left orthodoxy. No hemotympanum. No diana sign. NECK: Trachea midline. No midline tenderness. Full range of motion. CARDIOVASCULAR: Regular rate and rhythm. No murmur appreciated. RESPIRATORY: No accessory muscle use. Clear to auscultation. Breath sounds equal bilaterally. GASTROINTESTINAL: Abdomen soft, non-tender, nondistended. Hepatic and splenic margins not palpable. MUSCULOSKELETAL: No obvious deformities. NEUROLOGICAL: Awake and alert. No obvious cranial nerve deficits. Motor grossly within normal limits. Normal speech. Data Data Last Documented VS Vital Signs Date Time Temp Pulse Resp B/P (MAP) Pulse Ox O2 Delivery O2 Flow Rate FiO2 03/17/17 17:54 107 16 140/86 (104) 97 Room Air 03/17/17 15:[address] Brain W/O Iv Contrast(Rout) (03/17/17 ) Ondansetron Odt (Zofran Odt) (03/17/17 16:45) [facility] Medical Decision Making Medical Screen Exam Complete: Yes Emergency Medical Condition: Yes Interpretation(s) CT head negative Differential Diagnosis Head injury, concussion, other Narrative Course Medical decision-making new para 41-year-old male with closed head injury. CT is negative. Looks well. Recommend supportive treatment. Diagnosis Primary Impression: Closed head injury Additional Instructions: Take [id number] medications as needed for headache. Return to the emergency department for any new or worsening symptoms. Disposition: 01 DISCHARGE HOME Condition: Stable Kareem Harmon MD Mar 17, 2017 18:18
[2017-03-17 18:29] VITALS: BP 135/91
== END 2017-03-17 18:47 | disposition home or self-care (01) ==
LOC: PHED 15:16
DX: S09.90XA Unspecified injury of head, initial encounter (principal); I11.0 Hypertensive heart disease with heart failure; I50.9 Heart failure, unspecified; E11.9 Type 2 diabetes mellitus without complications; E78.5 Hyperlipidemia, unspecified; Z79.899 Other long term (current) drug therapy; Z87.891 Personal history of nicotine dependence; Z79.4 Long term (current) use of insulin; Z79.82 Long term (current) use of aspirin; X58.XXXA Exposure to other specified factors, initial encounter
CPT/HCPCS: 70450

== ENCOUNTER → 2017-10-23 | Outpatient (CLI) | payer OTHER, MEDICARE ==
[~2017-10-23] MED LIST changes: +ASPI-516 CHEW; -ASPI81CH CHEW; -CARA1TAB6 PO; +FENO145T2 PO; +NEUR300C PO; -PROT40TA PO; -SERO25TA PO
== END ==
LOC: HCAV 09:24
PROVIDERS: ATTEND Internal Medicine Cardiovascular Disease
DX: R55 Syncope and collapse (principal)
CPT/HCPCS: 93270